=== PATIENT | male | born 1940 | race Caucasian/White ===

== ENCOUNTER 2016-12-31 07:55 | Day surgery (SDC) | payer MEDICARE, MEDICAID ==
[~2016-12-31] VITALS: Ht 170.2 cm; Wt 76.0 kg
[~2016-12-31 07:55] MED LIST: AMLO10TA2 PO; HYDROCODONE PO; LEVO100T5 PO; LISI40TA PO; PRIM50TA PO; SIMV20TA3 PO
[2016-12-31] MEDS ORDERED: FENTANYL PF 100 MCG/2ML ONE (08:18)
[2016-12-31] MEDS ORDERED: LACTATED RINGERS 1,000 ML IV SCH (08:44)
[2016-12-31 08:45] VITALS: BP 112/62
[2016-12-31] MEDS ORDERED: IBUP800T PO (08:50)
[2016-12-31] MEDS ORDERED: CLINDAMYCIN PMX 900MG/50ML 50 ML IVPB ONE (09:00)
[2016-12-31] MEDS ORDERED: LIDOCAINE 1%, 2ML SQ PRN (09:00)
[2016-12-31] MEDS ORDERED: LIDOCAINE 1%-EPI 1:100K, 50ML ONE (10:20)
[2016-12-31] MEDS ORDERED: OXYMETAZOLINE NASAL SPRAY 0.05%, 15ML ONE (10:20)
[2016-12-31] MEDS ORDERED: ACETAMINOPHEN 325 MG TABLET PO PRN (10:30)
[2016-12-31] MEDS ORDERED: OXYcodone 5 MG/5 ML ORAL.SOL UDC PO PRN (10:30)
[2016-12-31] MEDS ORDERED: HYDROmorphone 1 MG/ML, 1ML IV PRN (10:30)
[2016-12-31] MEDS ORDERED: LABETALOL 5MG/ML, 20ML IV PRN (10:30)
[2016-12-31] MEDS ORDERED: MEPERIDINE/PF 25MG/0.5ML IVPush PRN (10:30)
[2016-12-31] MEDS ORDERED: ONDANSETRON 2MG/ML, 2ML IVPush PRN ×2 (10:30→15:00)
[2016-12-31] MEDS ORDERED: METOCLOPRAMIDE 5 MG/ML, 2ML IV PRN (10:30)
[2016-12-31] MEDS ORDERED: PROMETHAZINE 25 MG/ML, 1ML IV PRN (10:30)
[2016-12-31] MEDS ORDERED: FENTANYL PF 100 MCG/2ML IV PRN (10:30)
[2016-12-31] MEDS ORDERED: hydrALAzine 20 MG/ML, 1ML IV PRN (10:30)
[2016-12-31] MEDS ORDERED: GLYCOPYRROLATE 0.2MG/1ML ONE (10:33)
[2016-12-31] MEDS ORDERED: PROPOFOL 10 MG/ML, 20ML ONE (10:33)
[2016-12-31] MEDS ORDERED: ROCURONIUM 10 MG/ML ONE (10:33)
[2016-12-31] MEDS ORDERED: NEOSTIGMINE 1 MG/ML, 10ML ONE (10:33)
[2016-12-31] MEDS ORDERED: ACETAMINOPHEN 650 MG/20.3 ML UDC ONE (11:44)
[2016-12-31] MEDS ORDERED: OXYcodone 5 MG/5 ML ORAL.SOL UDC ONE (11:44)
== END 2016-12-31 17:12 | disposition home or self-care (01) ==
LOC: OUT 07:55
PROVIDERS: ATTEND Otolaryngology
DX: C01 Malignant neoplasm of base of tongue (principal); C09.9 Malignant neoplasm of tonsil, unspecified; I10 Essential (primary) hypertension; E03.9 Hypothyroidism, unspecified; F17.210 Nicotine dependence, cigarettes, uncomplicated; E78.5 Hyperlipidemia, unspecified
CPT/HCPCS: 31535; 31622; 43200; 88304; 88305; 93005; J2704; J2710; J3010; J7120; J3490

== ENCOUNTER → 2017-04-15 | Outpatient (CLI) | payer MEDICARE, MEDICAID ==
[~2017-04-15] MED LIST changes: +IBUP800T PO
== END | disposition home or self-care (01) ==
LOC: RAD 09:47
PROVIDERS: ATTEND Internal Medicine Geriatric Medicine
DX: R13.12 Dysphagia, oropharyngeal phase (principal)
CPT/HCPCS: 74230